=== PATIENT | female | born 1955 | race Caucasian/White ===

== ENCOUNTER 2019-09-08 15:40 | Emergency (ER) | payer BC, SELFPAY ==
[2019-09-08 15:52] VITALS: BP 151/88; PULSE 93; RESP 17; TEMP 37; O2SAT 95; BMI 24.4
--- NOTE | 2019-09-08 15:57 | XRR_ITS ---
PROCEDURE INFORMATION: Exam: XR Left Ankle Exam date and time: 09/08/2019 3:58 PM Age: 63 years old Clinical indication: Pain; Left; Patient HX: Twisted ankle felt a pop; Additional info: Injury and pain TECHNIQUE: Imaging protocol: XR Left ankle. Views: 3 or more views. COMPARISON: No relevant prior studies available. FINDINGS: Bones/joints: There is an oblique fracture through the distal left fibula, a transverse fracture through the medial malleolus and also a fracture through the posterior malleolus. There is left ankle dislocation with the talus posterior to the distal tibia. Soft tissues: No soft tissue gas. XR/XR ankle LT min 3V* [id number] IMPRESSION: There is a trimalleolar left ankle fracture with left ankle dislocation.
--- NOTE | 2019-09-08 16:03 | W.ED.EXTPRO ---
Documented by User: RUBIO Mena 09/08/19 17:26 HPI - Extremity Problem General: Chief complaint: Extremity Injury, Lower Stated complaint: LEFT ANKLE INJURY Time Seen by Provider: 09/08/19 15:52 History of Present Illness: HPI Narrative: Patient is a 63-year-old female who comes into the ED with left ankle injury. Patient states injury occurred just prior to arrival. She was out hunting for mushrooms and she was walking on a decline. She then rolled her left ankle and heard a snap. She says her foot was in and on direction and she was able to position it to try to put it back in line. She was then brought to the ED for evaluation. She did have some leftover hydrocodone pills at home and took 2 tablets before she got in the car and someone drove her to the ED. Associated symptoms: Deny chest pain, fever(s) or rash Review of Systems Const: Denies: fever, chills or fatigue Eyes: Denies: change in vision or eye discomfort ENMT: Denies: throat pain, painful swallowing, nasal discharge or nasal congestion Card: Denies: chest pain, palpitations, edema, swelling of feet/ankles, shortness of breath on exertion or shortness of breath when lying down Resp: Denies: shortness of breath, productive cough or non-productive cough GI: Denies: abdominal pain, nausea, vomiting, diarrhea, constipation or blood in stool : Denies: flank pain, painful urination or blood in urine Musc: Reports: extremity pain (left ankle) and extremity swelling (left ankle); Denies: neck pain or back pain Skin/Breast: Denies: rash or new lesion Neuro: Denies: headache, numbness in extremities or weakness in extremities PFS ED PFSH: Social History Smoking and tobacco status: never smoked Physical Exam Narrative: EXAM NARRATIVE: Patient is a 63-year-old female laying on exam bed with ice on left ankle. She appears in acute pain. Const: COMMON NORMALS: oriented x3 HENMT: COMMON NORMALS: normocephalic HEAD & SCALP: normocephalic MOUTH: oral and palatal mucosa normal THROAT: posterior oropharynx normal and uvula midline Neck/C-Spine: COMMON NORMALS: supple GENERAL: Yes normal visual inspection Resp: COMMON NORMALS: normal respiratory effort, no retractions, no use of accessory muscles and clear to auscultation bilaterally AUSCULTATION: clear to auscultation bilaterally Cardio: COMMON NORMALS: regular rate, regular rhythm, S1 normal heart sound, S2 normal heart sound, no gallops, no clicks, no murmurs and peripheral pulses 2+ throughout RATE: regular rate RHYTHM: regular rhythm HEART SOUNDS: S1 normal and S2 normal PERIPHERAL PULSES: pulses 2+ throughout GI: COMMON NORMALS: normal to inspection, nondistended, normoactive bowel sounds, soft to palpation, non-tender and no masses PALPATION: Yes soft : COMMON NORMALS: Yes no CVA tenderness BLADDER/KIDNEY EXAM: Yes no CVA tenderness Back/Pelvis: COMMON NORMALS: no CVA tenderness Extremity: LEFT LOWER EXTREMITY: Yes ankle joint Left ankle: Yes inspection (deformity, mild swelling), Yes palpation (medial and lateral ankle tenderness), Yes ROM (limited due to pain) and Yes neurovascular exam (intact) Neuro: COMMON NORMALS: oriented x3 and moves all extremities Skin: COMMON NORMALS: no rashes or lesions noted GENERAL SKIN EXAM: no rashes or lesions noted and dry skin Course Consultations: Consultation #1: I spoke with the orthopedic doctor electronics tester Dr. Musa about patient's case. Dr. Musa suggested that we reduce fracture and splint. Patient can then be discharged and she will see patient tomorrow in the orthopedic clinic. Time: 17:10 Vital Signs: Vital signs: Vital Signs Temperature 98.6 F 09/08/19 15:52 Pulse Rate 84 09/08/19 19:38 Respiratory Rate 16 09/08/19 19:38 Blood Pressure 127/60 09/08/19 19:38 Pulse Oximetry 98 09/08/19 19:38 MDM - Extremity (Nontraumatic) Imaging Data^: Xray Ortho: Attestation: I personally reviewed and interpreted this imaging study as follows: Radiologist's impression: [address] [address] XRay Report Signed Patient: Jeanine Parks Unit #: [id number] : 1955 Age/Sex: 63 / F ADM Date: 09/08/19 Loc: ER Room/Bed: Attending Dr: Ordering Provider/Ordering MD: Wan Balderas Date of Service: 09/08/19 Procedure(s): XR ankle LT min 3V* 66011 Accession Number(s): [id number] Report Number: [id number] PROCEDURE INFORMATION: Exam: XR Left Ankle Exam date and time: 09/08/2019 3:58 PM Age: 63 years old Clinical indication: Pain; Left; Patient HX: Twisted ankle felt a pop; Additional info: Injury and pain TECHNIQUE: Imaging protocol: XR Left ankle. Views: 3 or more views. COMPARISON: No relevant prior studies available. FINDINGS: Bones/joints: There is an oblique fracture through the distal left fibula, a transverse fracture through the medial malleolus and also a fracture through the posterior malleolus. There is left ankle dislocation with the talus posterior to the distal tibia. Soft tissues: No soft tissue gas. XR/XR ankle LT min 3V* [id number] IMPRESSION: There is a trimalleolar left ankle fracture with left ankle dislocation. Dictated By: Avni Salgado MD Signed By: Avni Salgado MD Signed Date/Time: 09/08/191631 DD/ 163 Discharge Plan Discharge Patient Disposition: Home, Self-Care Clinical Impression: Ankle fracture Qualifiers: Encounter type: initial encounter Fracture type: closed Laterality: left Qualified Code(s): S82.892A - Other fracture of left lower leg, initial encounter for closed fracture Condition: Stable Prescriptions: [place] 5-325 mg tablet 1 tab PO Q6H PRN (Reason: pain) 5 Days Qty: 20 RF: 0 Zofran 4 mg tablet 4 mg PO Q6H PRN (Reason: nausea and vomiting) Qty: 20 RF: 0 Percocet 5-325 mg tablet 1 tab PO Q6H PRN (Reason: pain) Qty: 20 RF: 0 No Action chlorzoxazone 500 mg tablet 500 mg PO DAILY RF: 0 hydrocodone-acetaminophen 5-325 mg tablet 1 tab PO DAILY RF: 0 zolpidem 10 mg tablet 10 mg PO BEDTIME RF: 0 duloxetine 30 mg capsule,delayed release(DR/EC) 30 mg PO QID RF: 0 PreserVision AREDS 14,320-226-200 [id number]-or-[id number] Capsule 1 cap PO BID RF: 0 vit D3-folic [id number]-B12 2,000-800-0.32 unit-mcg-mg Tablet 1 tab PO DAILY RF: 0 Discharge Orders: Discharge Order (Routine); Ordered 09/08/19 Ordered By: Lona Hanks Referrals: Asya Sandoval MD [Physician] - 1-3 days Nathan Marquis MD [Primary Care Provider] - Discharge Diet: Advance as tolerated Discharge Activity: Limit activity as instructed Patient Instructions: Ankle Fracture (ED) Activity Restrictions/Additional Instructions: Please return to the ER immediately for any of the signs or symptoms listed on your discharge instruction sheets, worsening/changing of your symptoms, you are not getting better as quickly as expected, or for ANY other cause or concerns. Do not bear weight or walk on your left foot. Use your crutches at all times. Take your pain medications as I have prescribed you and be certain to follow-up with Dr. Musa tomorrow. Discharge Date/Time: 09/08/19 19:38 Sign Out Sign Out Data: Patient Sign Out occurred on 09/08/19 at 18:21. Patient's care was discussed, and care was transferred from to Lona Hanks. Coding Level of Care Code ED Physician Relations Representative for Chg Fwd Exam Comprehensive Documented by User: Lona Hanks 09/08/19 19:45 HPI - Extremity Problem General: Chief complaint: Extremity Injury, Lower Stated complaint: LEFT ANKLE INJURY Time Seen by Provider: 09/08/19 15:52 PFSH ED PFSH: Social History Smoking and tobacco status: never smoked Procedures Orthopedic Fracture Reduction Fracture #1: Time Out Performed: Yes Side: left Fracture Reduction Location: tibia and fibula Technique: direct manipulation Post Reduction X-rays Demonstrate: anatomical reduction Post-reduction neuro exam: intact Post-reduction vascular exam: intact Splint Applied: Yes Patient Tolerated Procedure: well Procedural Sedation Indication: fracture/dislocation reduction ASA Class: II Preparation: monitoring and evaluation advisor applied, pulse oximeter, supplemental O2 applied, suction/airway equipment at bedside and IV secured IV Propofol dose (mg): 150 Patient Tolerated Procedure: well Complications: none Interventions: oxygen applied Course Vital Signs: Vital signs: Vital Signs Temperature 98.6 F 09/08/19 15:52 Pulse Rate 84 09/08/19 19:38 Respiratory Rate 16 09/08/19 19:38 Blood Pressure 127/60 09/08/19 19:38 Pulse Oximetry 98 09/08/19 19:38 MDM - Extremity (Nontraumatic) MDM Narrative: Medical decision making narrative: The case is been previously discussed with Dr. Musa by Wan Balderas. We are going to go ahead and put her in a sugar tong and posterior splint. She agrees not to bear weight will follow-up with Dr. Musa tomorrow. After the reduction her foot was neurovascularly intact. Patient tolerated the sedation well there is no complications. Imaging Data^: Xray Ortho: My impression: Left ankle post reduction -appropriate alignment with no further dislocation. Discharge Plan Discharge Patient Disposition: Home, Self-Care Clinical Impression: Ankle fracture Qualifiers: Encounter type: initial encounter Fracture type: closed Laterality: left Qualified Code(s): S82.892A - Other fracture of left lower leg, initial encounter for closed fracture Condition: Stable Prescriptions: [place] 5-325 mg tablet 1 tab PO Q6H PRN (Reason: pain) 5 Days Qty: 20 RF: 0 Zofran 4 mg tablet 4 mg PO Q6H PRN (Reason: nausea and vomiting) Qty: 20 RF: 0 Percocet 5-325 mg tablet 1 tab PO Q6H PRN (Reason: pain) Qty: 20 RF: 0 No Action chlorzoxazone 500 mg tablet 500 mg PO DAILY RF: 0 hydrocodone-acetaminophen 5-325 mg tablet 1 tab PO DAILY RF: 0 zolpidem 10 mg tablet 10 mg PO BEDTIME RF: 0 duloxetine 30 mg capsule,delayed release(DR/EC) 30 mg PO QID RF: 0 PreserVision AREDS 14,320-226-200 [id number] Capsule 1 cap PO BID RF: 0 vit D3-folic [id number]-[id number]-B12 2,000-800-0.32 unit-mcg-mg Tablet 1 tab PO DAILY RF: 0 Discharge Orders: Discharge Order (Routine); Ordered 09/08/19 Ordered By: Lona Hanks Referrals: Asya Sandoval MD [Physician] - 1-3 days Nathan Marquis MD [Primary Care Provider] - Discharge Diet: Advance as tolerated Discharge Activity: Limit activity as instructed Patient Instructions: Ankle Fracture (ED) Activity Restrictions/Additional Instructions: Please return to the ER immediately for any of the signs or symptoms listed on your discharge instruction sheets, worsening/changing of your symptoms, you are not getting better as quickly as expected, or for ANY other cause or concerns. Do not bear weight or walk on your left foot. Use your crutches at all times. Take your pain medications as I have prescribed you and be certain to follow-up with Dr. Musa tomorrow. Discharge Date/Time: 09/08/19 19:38 Sign Out Sign Out Data: Patient Sign Out occurred on 09/08/19 at 18:21. Patient's care was discussed, and care was transferred from to Lona Hanks. Coding Level of Care Code ED Physician Relations Representative for Chg Fwd Exam Comprehensive
[2019-09-08] MEDS: ondansetron 2 mg/ML SDV 2 mL 4 MG IVP (16:25)
[2019-09-08] MEDS: morphine 4 mg/mL SDV 1 mL 2 MG IVP (16:25)
--- NOTE | 2019-09-08 17:36 | XRR_ITS ---
PROCEDURE INFORMATION: Exam: XR Left Ankle Exam date and time: 09/08/2019 5:37 PM Age: 63 years old Clinical indication: Injury or trauma; Fall; Follow-up exam; Fracture, traumatic; Closed fracture; Ankle; Left; Trimalleolar; Patient HX: Post closed reduction tri malleolar FX; Additional info: Post reduction TECHNIQUE: Imaging protocol: XR Left ankle. Views: 1 or 2 views. COMPARISON: CR (LOW EX, ) 09/08/2019 4:08 PM FINDINGS: Bones/joints: There are fractures of the distal left fibula, medial malleolus and posterior malleolus. Alignment has improved in the interval. Alignment between the tibia and talus appears anatomic. Soft tissues: There is an overlying cast. XR/XR ankle LT min 3V* [id number] IMPRESSION: There is a trimalleolar fracture. Alignment has improved when compared with 09/08/2019 at 4:10 p.m..
[2019-09-08 18:15] VITALS: BP 132/87; PULSE 80; RESP 16; O2SAT 98
[2019-09-08] MEDS: propofol 10 mg/mL SDV 20 mL IVP (18:15)
[2019-09-08] MEDS: sodium chloride 0.9% 1,000 ML 125 ML IV (18:22)
[2019-09-08] MEDS: ondansetron 2 mg/ML SDV 2 mL 8 MG IVP (18:22)
[2019-09-08] MEDS: oxyCODONE-APAP 5-325 mg Tablet 2 TAB PO (19:27)
[2019-09-08 19:38] VITALS: BP 127/60; PULSE 84; RESP 16; O2SAT 98
--- NOTE | 2019-09-09 15:47 | DCPLANNER ---
histology manager had message to schedule a follow up appointment for patient with ortho. histology manager called ortho, spoke with Pat, gave clinic patients information. histology manager was told that patients information would be printed and reviewed. Clinic will call returned case inspector and patient with appointment information.
--- NOTE | 2019-09-11 14:31 | DCPLANNER ---
Patient had an appointment scheduled for 09.09.19 at [facility] with Dr. Sandoval. Patient did attend the appointment.
== END 2019-09-08 19:38 | disposition home or self-care (01) ==
PROVIDERS: Emergency Provider Emergency Medicine; Family Provider Family Medicine; PCP Family Medicine
DX: S82.852A Displaced trimalleolar fracture of left lower leg, initial encounter for closed fracture (principal); X50.1XXA Overexertion from prolonged static or awkward postures, initial encounter
CPT/HCPCS: 12345; 27818; 73610; 96361; 96374; 96375; 99283; 99284; J2270; J2405; J2704; J7030

== ENCOUNTER 2021-06-03 11:06 | Outpatient (CLI) | payer MEDICARE, SELFPAY ==
[2021-06-03 11:28] VITALS: BP 138/77; PULSE 70; RESP 16; TEMP 36.5; O2SAT 98; BMI 23.9
[2021-06-03 12:58] VITALS: BP 132/81; PULSE 63; RESP 16; TEMP 36.5; O2SAT 98
== END 2021-06-03 11:07 | disposition home or self-care (01) ==
LOC: OPS 11:07
PROVIDERS: PCP Family Medicine; Visit Provider Nurse Practitioner
DX: U07.1 COVID-19 (principal)
CPT/HCPCS: 96365

== ENCOUNTER 2022-09-13 10:27 | Outpatient (CLI) | payer MEDICARE, SELFPAY | END 2022-09-13 10:28 | disposition home or self-care (01) | PROVIDERS: PCP Family Medicine; Visit Provider Family Medicine | DX: R06.89 Other abnormalities of breathing (principal) | CPT/HCPCS: 94010; 94726; 94729 ==